=== PATIENT | female | born 1960 | race Two or more races ===

== ENCOUNTER → 2024-10-30 | Outpatient (CLI) | payer MEDICAID, SELFPAY ==
--- NOTE | 2024-10-30 | XR_ITS ---
Examination: Lumbar spine, 5 views Technique: Lumbar spine AP, lateral, coned lateral lower lumbar spine, bilateral obliques 5 views Exam date and time: October 30, 2024 1151 hours INDICATIONS: Low back pain beginning 4 months ago. FINDINGS: Adequate alignment lumbar vertebral bodies No lumbar fracture Advanced degenerative disc disease L5-S1 No spondylolisthesis IMPRESSION: Advanced degenerative disc disease L5-S1
== END | disposition home or self-care (01) ==
LOC: COPL 11:34 → CDIM 11-06 10:28
PROVIDERS: PCP Physician Assistant; Referring Provider Physician Assistant; Visit Provider Physician Assistant
DX: M51.370 Other intervertebral disc degeneration, lumbosacral region with discogenic back pain only (principal)
CPT/HCPCS: 72110

== ENCOUNTER → 2025-01-04 | Outpatient (CLI) | payer MEDICAID, SELFPAY ==
--- NOTE | 2025-01-04 16:13 | XR_ITS ---
EXAMINATION: Cervical spine, 5 views Technique: Cervical spine AP, AP odontoid, lateral, bilateral obliques, 5 views Exam date and time: January 04, 2025, 1631 hours INDICATIONS: Neck pain beginning 4 months ago. FINDINGS: Adequate alignment cervical vertebral bodies. No cervical fracture. Intact odontoid. Advanced degenerative disc disease C4-C5, moderate degenerative disc disease C5-C6, C6-C7 Mild bilateral neural foraminal stenosis at these levels IMPRESSION: Advanced degenerative disc disease C4-C5 Moderate degenerative disc disease C5-C6, C6-C7
--- NOTE | 2025-01-04 16:13 | XR_ITS ---
Examination: Shoulder,left, 3 views Technique: Shoulder AP internal rotation, AP external rotation, Y view shoulder, 3 views Exam date and time :January 04, 2025 1631 hours INDICATIONS: Left shoulder pain months FINDINGS: Significant osteopenia. Moderate narrowing glenohumeral joint. No shoulder fracture or dislocation Mild osteoarthritis acromioclavicular joint IMPRESSION: Moderate narrowing glenohumeral joint
== END | disposition home or self-care (01) ==
PROVIDERS: PCP Physician Assistant; Referring Provider Physician Assistant; Visit Provider Physician Assistant
DX: M50.321 Other cervical disc degeneration at C4-C5 level (principal); M25.812 Other specified joint disorders, left shoulder
CPT/HCPCS: 72050; 73030